=== PATIENT | female | born 1975 | race African-American/Black ===

== ENCOUNTER 2020-12-18 02:22 | Emergency (ER) | payer OTHER ==
[~2020-12-18] VITALS: Ht 162.6 cm; Wt 72.6 kg
[~2020-12-18 02:22] MED LIST: BENADRYL25 MG PO; CITRATE OF MAG296 ML PO; COLACE100 MG PO; FLEET ENEMA EX230 ML RC; NORCO 5-325 TA1 EACH PO; PREDNISONE50 MG PO
[2020-12-18 03:09] LABS: CALCIUM 8.7 mg/dL (8.5-10.1); CREATININE 0.9 mg/dL (0.6-1.0); POTASSIUM 4.4 mmol/L (3.5-5.1)
[2020-12-18 03:10] LABS: ABSOLUTE NEUTROPHILS 3.6 thou/uL (1.4-8.2); BASOPHILS 1.3 % (0.0-2.0); EOSINOPHILS 1.8 % (0.0-3.0); HEMATOCRIT 27.4 % (37.0-47.0); HEMOGLOBIN 8.3 gm/dL (12.0-15.0); LYMPHOCYTES 39.6 % (24.0-44.0); MCH 21.6 pg (26.0-34.0); MCHC 30.4 g/dL (28.0-37.0); MCV 71.1 fL (80.0-100.0); PLATELET COUNT 436 thou/uL (150-400); POLYS 49.3 % (36.0-66.0); RBC 3.86 mil/uL (4.20-5.00); RDW 19.4 % (10.5-14.5); WBC 7.2 thou/uL (4.0-11.0)
[2020-12-18 03:19] LABS: ALBUMIN 3.8 g/dL (3.4-5.0); TOTAL BILIRUBIN 0.2 mg/dL (0.2-1.0); TOTAL PROTEIN 7.4 g/dL (6.4-8.2)
[2020-12-18 04:17] LABS: URINE BILIRUBIN NEGATIVE (Negative); URINE BLOOD NEGATIVE (Negative); URINE CLARITY CLEAR; URINE COLOR YELLOW; URINE GLUCOSE-RANDOM* NEGATIVE (Negative); URINE KETONES NEGATIVE (Negative); URINE LEUKOCYTES-REFLEX NEGATIVE (Negative); URINE NITRITE-REFLEX NEGATIVE (Negative); URINE PROTEIN (DIPSTICK) NEGATIVE (Negative); URINE SPECIFIC GRAVITY 1.025 (1.005-1.035); URINE UROBILINOGEN 0.2 E.U./dl (0.2-1.0)
[2020-12-18 04:26] LABS: AMP/METHAMP Negative (Negative); BARBITURATES Negative (Negative); BENZODIAZEPINES Negative (Negative); COCAINE Negative (Negative); METHADONE Negative (Negative); OPIATES Negative (Negative); PCP Negative (Negative)
[2020-12-18 05:54] VITALS: BP 107/68
--- NOTE | 2020-12-18 09:43 | EKG ---
[place] [address] [address] [facility] [place] [address] ELECTROCARDIOGRAM REPORT Name: TRUONG PERRY Room #: [facility]USRichi#: [id number] Admission: 12/18/20 Attend Phys: Discharge: 12/18/20 Date of : 79 Report #: [id number] [facility] ED Test Date: 2020-12-18 Test Time: 02:32:24 Pat Name: TRUONG PERRY Department: Room: Gender: F [employer]: KMValente : 1975 Requested By: Armin Martin Order Number: [id number] MD: Ta Mauricio Measurements Intervals [place] Rate: 93 P: 42 VA: 182 QRS: 21 QRSD: 93 T: 23 QT: 359 QTc: 447 Interpretive Statements Sinus rhythm LVH by voltage Compared to ECG 02/09/2005 00:45:46 No significant changes Electronically Signed On 12-18-2020 9:42:51 [employer] OPERATOR by Ta Mauricio [email or web address] <ELECTRONICALLY SIGNED> By: Ta Mauricio MD, [facility] 12/18/20 0942 0232 0232 Ta Mauricio MD, FAC /EPI
== END 2020-12-18 05:55 | disposition home or self-care (01) ==
LOC: ER 02:22
PROVIDERS: Emergency Medicine
DX: D64.9 Anemia, unspecified (principal); Z20.822 Contact with and (suspected) exposure to COVID-19; R56.9 Unspecified convulsions; Z88.5 Allergy status to narcotic agent